=== PATIENT | male | born 1990 | race Caucasian/White ===

== ENCOUNTER 2024-03-20 11:16 | Emergency (ER) | payer BC ==
[~2024-03-20] VITALS: Ht 190.5 cm; Wt 88.5 kg
[2024-03-20 11:49] VITALS: BP_SYST 124; PULSE 75; RESP 16; TEMP 98.1; O2SAT 99
[2024-03-20] MEDS ORDERED: IBUP-1971 PO (13:08)
[2024-03-20] MEDS ORDERED: HYDR-3917 PO (13:08)
[2024-03-20] MEDS: HYDROcodone/ACETAMIN 10-325 MG TAB PO ONE (14:59)
== END 2024-03-20 13:50 | disposition home or self-care (01) ==
LOC: SED 11:16
DX: S43.492A Other sprain of left shoulder joint, initial encounter (principal); Z79.899 Other long term (current) drug therapy; V19.3XXA Pedal cyclist (driver) (passenger) injured in unspecified nontraffic accident, initial encounter; Y93.89 Activity, other specified; Y92.89 Other specified places as the place of occurrence of the external cause; Y99.8 Other external cause status
CPT/HCPCS: 73030; 99283